=== PATIENT | male | born 1995 | race African-American/Black ===

== ENCOUNTER → 2019-01-21 | Outpatient (CLI) | payer BC ==
[2019-01-21 10:35] LABS: Hepatitis B Surface Antibody Positive
[2019-01-21 14:01] LABS: Hepatitis A Total Antibody Positive; Hepatitis B Core Total AB Negative; Hepatitis B Surface Antigen Negative (Negative); Hepatitis C Antibody Negative (Negative)
[2019-01-22 06:06] LABS: RPR Non Reactive (Non Reactive)
== END | disposition home or self-care (01) ==
LOC: LAB 08:59
PROVIDERS: ATTEND Nurse Practitioner Family
DX: Z72.89 Other problems related to lifestyle (principal)
CPT/HCPCS: 36415; 86592; 86703; 86704; 86706; 86708; 86803; 87340

== ENCOUNTER → 2019-04-09 | Outpatient (CLI) | payer BC ==
[2019-04-10 06:06] LABS: RPR Non Reactive (Non Reactive)
[2019-04-12 09:35] LABS: Hepatitis A Ab IgM Negative; Hepatitis B Core IgM Negative; Hepatitis B Surface Antigen Negative (Negative); Hepatitis C Antibody Negative (Negative)
== END | disposition home or self-care (01) ==
LOC: LAB 08:13
PROVIDERS: ATTEND Nurse Practitioner Family
DX: Z11.3 Encounter for screening for infections with a predominantly sexual mode of transmission (principal)
CPT/HCPCS: 36415; 80074; 86592; 86703